=== PATIENT | female | born 1985 | race African-American/Black ===

== ENCOUNTER 2021-12-09 12:47 | Emergency (ER) | payer OTHER ==
[2021-12-09 12:52] VITALS: TEMP 98.9; BMI 28.8
[2021-12-09] MEDS ORDERED: LACTATED RINGERS SOLUTION 1000 ML INFUS.BAG IV ONE (14:05)
[2021-12-09 14:50] LABS: BASO % 0.8 % (0-2.0); EOS % 1.6 % (0-4.5); HEMATOCRIT 32.9 % (32.4-45.2); HEMOGLOBIN 11.3 GM/dL (10.7-15.3); LYMPH % 29.2 % (8-40); MCH 27.5 pg (25.7-33.7); MCHC 34.4 g/dl (32.0-36.0); MEAN CELL VOLUME 79.8 fl (80-96); MEAN PLT VOLUME 8.2 fl (7.5-11.1); MONO % 9.3 % (3.8-10.2); NEUT % 59.1 % (42.8-82.8); PLATELET COUNT 270 10^3/uL (134-434); RBC 4.12 M/mm3 (3.60-5.2); RDW 15.2 % (11.6-15.6); WHITE BLOOD COUNT 7.2 K/mm3 (4.0-10.0)
[2021-12-09 15:08] LABS: INR 1.16 (0.83-1.09); PROTHROMBIN TIME (PATIENT) 13.4 SEC (9.7-13.0)
[2021-12-09 15:15] LABS: CHLORIDE 107 mmol/L (98-107); SODIUM 139 mmol/L (136-145)
[2021-12-09 15:17] LABS: CALCIUM 8.9 mg/dL (8.5-10.1)
[2021-12-09 15:18] LABS: ALBUMIN 4.1 g/dl (3.4-5.0); ANION GAP 5 MMOL/L (8-16); BLOOD UREA NITROGEN 12.9 mg/dL (7-18); CO2 27 mmol/L (21-32); GLUCOSE,RANDOM 81 mg/dL (74-106); MAGNESIUM 2.1 mg/dL (1.8-2.4)
[2021-12-09 15:20] LABS: CREATININE 0.7 mg/dL (0.55-1.3); PHOSPHOROUS 3.6 mg/dL (2.5-4.9); SGOT/AST 11 U/L (15-37)
[2021-12-09 15:21] LABS: SGPT/ALT 19 U/L (13-61)
[2021-12-09 15:22] LABS: BILIRUBIN,TOTAL 0.3 mg/dL (0.2-1); TOT PROT 7.6 g/dl (6.4-8.2)
[2021-12-09 15:23] LABS: ALK PHOS 73 U/L (45-117)
[2021-12-09 15:31] LABS: HCG,QUALITATIVE URINE Negative; PH,URINE 6.5 (5.0-8.0); URINE APPEARANCE CLEAR; URINE BILIRUBIN NEGATIVE (NEGATIVE); URINE COLOR YELLOW; URINE GLUCOSE (UA) NEGATIVE (NEGATIVE); URINE KETONE NEGATIVE (NEGATIVE); URINE LEUK ESTERASE NEGATIVE (NEGATIVE); URINE NITRITE NEGATIVE (NEGATIVE); URINE PROTEIN NEGATIVE (NEGATIVE); URINE UROBILINOGEN 0.2 mg/dL (0.2-1.0)
[2021-12-09 17:10] VITALS: BP 120/86; PULSE 85
== END 2021-12-09 17:19 | disposition home or self-care (01) ==
LOC: JER 12:47
DX: R42 Dizziness and giddiness (principal)
CPT/HCPCS: 36415; 71046-TC-FY; 80053; 81003; 82962; 83735; 84100; 84484; 84703; 85025; 85610; 85730; 87086; 93005; 93010; 99285-25